=== PATIENT | male | born 1965 | race Caucasian/White ===

== ENCOUNTER 2019-06-27 07:19 | Inpatient (IN) | payer BC, OTHER ==
[~2019-06-27] VITALS: Ht 175.3 cm; Wt 82.6 kg
[2019-06-27] VITALS (7 sets, daily range): BP systolic 112–152; BP diastolic 73–93
[~2019-06-27 07:19] MED LIST: ACET325T9 PO; ATOR10TA60 PO; DICL100G18 TP; HYDR-2761 PO; HYDR12.575 PO; HYDROmorphone 2 MG/ML VIAL IV PRN; IBUP-1007 PO; IV RINGERS,LACTATED 1000ML 1,000 ML IV SCH; LIDOCAINE 1% PF 2 ML VIAL. ID PRN; LISI10TA2 PO; LISI1TAB19 PO; LISI30TA4 PO; MORPHINE SULFATE 2 MG/ML VIAL. IV PRN; NYST60PO TP; OMEG1CAP27 PO; OMEP20CA10 PO; ONDANSETRON PF 4 MG/2 ML VIAL. IV PRN; PROCHLORPERAZINE 10 MG/2 ML VIAL. IV PRN; SENN8.6T67 PO; SILD50TA PO; TRAM50TA PO; ZINC56.7 TP; cefOXitin SODIUM IV Push 2 GM VIAL. IVP PRN; fentaNYL PF VIAL 100 MCG/2 ML VIAL IV PRN
[2019-06-27] MEDS ORDERED: PROPOFOL 20 ML IV ONE (08:38)
[2019-06-27] MEDS ORDERED: LIDOCAINE 2% PF 5 ML VIAL. ONE (08:38)
[2019-06-27] MEDS ORDERED: fentaNYL PF VIAL 100 MCG/2 ML VIAL ONE ×2 (08:38→10:45)
[2019-06-27] MEDS ORDERED: MIDAZOLAM HCL/PF 2 MG/2 ML VIAL. ONE (08:38)
[2019-06-27] MEDS ORDERED: DEXAMETHASONE SOD PHOS 4 MG/ML VIAL ONE (08:38)
[2019-06-27] MEDS ORDERED: ONDANSETRON PF 4 MG/2 ML VIAL. ONE (08:38)
[2019-06-27] MEDS ORDERED: ROCURONIUM 50 MG/5 ML VIAL. ONE (08:38)
--- NOTE | 2019-06-27 08:54 | PDOC ---
SURGICAL PROGRESS NOTE Subjective 53 yo M with hx of cecal perforation. TO OR for ileostomy takedown. Barium enema is wnl R/R/B/A d/w pt and pt's mother. Risks, including, but not limited to: bleeding, infection, damage to surrounding structures, risk of anesthesia, risk of . They appear to understand, their questions are answered and they elect to proceed. Office note H&P reviewed and unchanged. Vital Signs Vital Signs Date Time Temp Pulse Resp B/P (MAP) Pulse Ox O2 Delivery O2 Flow Rate FiO2 06/27/19 08:24 98.4 75 18 158/94 97 Room Air 98.4 CARLOS ENRIQUE BARNARD MD Jun 27, 2019 08:54
[2019-06-27] MEDS ORDERED: cefOXitin SODIUM IV Push 2 GM VIAL. IVP ONE (09:45)
[2019-06-27] MEDS ORDERED: NEOSTIGMINE METHYLSULFATE 5 MG/5 ML SYRINGE. ONE (10:13)
[2019-06-27] MEDS ORDERED: GLYCOPYRROLATE 1 MG/5 ML VIAL. ONE (10:13)
[2019-06-27] MEDS: IV RINGERS,LACTATED 1000ML 1,000 ML IV SCH ×2 (10:26→14:20)
[2019-06-27] MEDS ORDERED: IV NORMAL SALINE 1000ML BAG 1,000 ML IV SCH (10:26)
[2019-06-27] MEDS ORDERED: ONDANSETRON PF 4 MG/2 ML VIAL. IV PRN (10:30)
[2019-06-27] MEDS ORDERED: NALOXONE 0.4 MG/ML VIAL. IV PRN (10:30)
[2019-06-27] MEDS ORDERED: MORPHINE SULFATE 2 MG/ML VIAL. IV PRN (10:30)
[2019-06-27] MEDS ORDERED: 0.9 % SODIUM CHLORIDE 10 ML DISP.SYRIN. IV PRN (10:30)
--- NOTE | 2019-06-27 10:35 | PDOC4 ---
OPERATIVE NOTE Date: Date: Jun 27, 2019 Pre-Op Diagnosis: Perforated cecum Post-Op Diagnosis: same Procedure Performed: Ileostomy takedown Surgeon: Atilio Barnard Anesthesia Type: GETA Blood Loss: 50 Specimans Obtained: none Findings: normal anatomy Complications: none Operative Note: After obtaining informed consent, patient was taken to OR, induced under GETA and prepped in the usual fashion. Ileostomy site was identified. Mucocutaneous junction was divided with cautery. This was taken down to fascia. Fascia cleared off for several centimeters circumferentially. No obvious pathology noted. The previous ileostomy was closed in a transverse fashion using inside layer of 3 0 PDS and outside layer of 3 0 vicryl. Repair appears patent, viable, under no tension and without evidence of leakage. Bowel returned to abdominal cavity. Copious irrigation. Fascia repaired in transverse fashion using 0 looped PDS. Skin and subcutaneous tissue closed loosely in a pursestring fashion using 3 0 vicryl and 4 0 monocryl. Dressing placed. Patient tolerated procedure well and was sent to PACU in stable condition. All counts correct. Wound class is 4, dirty (ileostomy). CARLOS ENRIQUE BARNARD MD Jun 27, 2019 10:35
[2019-06-27] MEDS: HYDROcodone/APAP 5/325MG 1 TAB TABLET PO PRN ×2 (12:52→23:12)
[2019-06-27] MEDS ORDERED: SEVOFLURANE 61 TO 120 MINUTES. IH ONE (13:48)
[2019-06-27] MEDS: NAPROXEN 500 MG TABLET PO PRN ×2 (15:10→21:51)
[2019-06-27] MEDS: ACETAMINOPHEN 325 MG TABLET. PO PRN (15:10)
[2019-06-27] MEDS: DOCUSATE SODIUM 100 MG CAPSULE. PO SCH (21:51)
[2019-06-27] MEDS: ENOXAPARIN 40 MG/0.4 ML SYRINGE. SQ SCH (21:52)
[2019-06-28 03:00] VITALS: BP 131/71
[2019-06-28] MEDS: NAPROXEN 500 MG TABLET PO PRN ×2 (06:10→22:13)
[2019-06-28] MEDS: HYDROcodone/APAP 5/325MG 1 TAB TABLET PO PRN ×2 (06:10→22:13)
[2019-06-28 07:00] VITALS: BP 148/87
[2019-06-28] MEDS: DOCUSATE SODIUM 100 MG CAPSULE. PO SCH ×2 (09:57→22:12)
[2019-06-28 11:00] VITALS: BP 152/91
--- NOTE | 2019-06-28 14:40 | PDOC ---
SURGICAL PROGRESS NOTE Subjective Pt without c/o, freida clears, no n/V passing stools Vital Signs Vital Signs Date Time Temp Pulse Resp B/P (MAP) Pulse Ox O2 Delivery O2 Flow Rate FiO2 06/28/19 11:00 98.4 69 18 152/91 (111) 99 Room Air 98.4 06/27/19 23:00 8.0 I&O Intake and Output 06/28/19 07:00 Intake Total 1800 ml Output Total 250 ml Balance 1550 ml IV Total 1100 ml Other 700 ml Output Urine Total 200 ml Estimated Blood Loss 50 ml # Voids 7 General: Alert, Oriented X3, Cooperative, No acute distress Abdomen: Soft, No tenderness, Other (dressing c/d/i) Problem List s/p ileostomy takedown doing well ADAT plan d/c in AM CARLOS ENRIQUE BARNARD MD Jun 28, 2019 14:40
[2019-06-28 15:00] VITALS: BP 155/88
[2019-06-28 19:00] VITALS: BP 133/67
[2019-06-28] MEDS: ENOXAPARIN 40 MG/0.4 ML SYRINGE. SQ SCH (21:00)
[2019-06-28 23:00] VITALS: BP 146/79
[2019-06-29 03:00] VITALS: BP 136/75
[2019-06-29] MEDS: ACETAMINOPHEN 325 MG TABLET. PO PRN (03:35)
[2019-06-29 07:00] VITALS: BP 143/86
[2019-06-29] MEDS: DOCUSATE SODIUM 100 MG CAPSULE. PO SCH (08:49)
[2019-06-29] MEDS: HYDROcodone/APAP 5/325MG 1 TAB TABLET PO PRN (08:53)
[2019-06-29 11:00] VITALS: BP 145/84
--- NOTE | 2019-06-29 12:25 | PDOC ---
Provider Note Provider Note JOSE E Ding for Dr Lisa pt up and about tolerating diet home today follow up with CHANTE Alcantara MD Jun 29, 2019 12:25
--- NOTE | 2019-07-03 11:32 | PDOC3 ---
Discharge Summary Visit Information Date of Admission: Jun 27, 2019 Date of Discharge: Jun 29, 2019 Admitting Diagnosis: Perforated cecum Final Diagnosis Perforated cecum Brief Hospital Course Allergies Allergies Coded Allergies Type Severity Reaction Last Updated Verified No Known Drug Allergies 06/22/19 No Brief Hospital Course Mr. Guevara is a 53 old male who underwent ileostomy takedown. Postoperatively tolerating diet, bowel function slowly returned, and ready for discharge home Discharge Information Condition at Discharge: Stable Follow Up: Weeks (2) Disposition/Orders: D/C to Home Scheduled Atorvastatin Calcium (Atorvastatin Calcium) 10 Mg Tablet, 10 MG PO HS for cholesterol, #30 Ref 0 (Reported) Entered as Reported by: SAMANTHA FISHMAN on 04/07/191038 Last Taken: Unknown Dose on 06/26/19 Last Action: Reviewed on 06/27/19822 by MEY QUESADA Hydrochlorothiazide (Hydrochlorothiazide Capsule ) 12.5 Mg Capsule, 12.5 MG PO DAILY for DIURETIC, Ref 0 (Reported) Entered as Reported by: FANNY SHARMA on 06/22/191310 Last Taken: Unknown Dose on 06/26/19 Last Action: Reviewed on 06/27/19822 by MEY QUESADA Lisinopril (Lisinopril) 30 Mg Tablet, 1 TAB PO DAILY for HTN, #30 Ref 5 (Reported) Entered as Reported by: FANNY SHARMA on 06/22/191310 Last Taken: Unknown Dose on 06/26/19 Last Action: Reviewed on 06/27/19822 by MEY QUESADA Omeprazole (Omeprazole) 20 Mg Capsule.dr, 1 CAP PO DAILY for stomach acid, #30 Ref 5 (Reported) Entered as Reported by: SAMANTHA FISHMAN on 04/07/191038 Last Taken: Unknown Dose on 06/26/19 Last Action: Reviewed on 06/27/19822 by MEY QUESADA Scheduled PRN Acetaminophen (Tylenol) 325 Mg Tablet, 2 TAB PO PRN Q12HRS PRN for PAIN, #30 (Reported) Entered as Reported by: SAMANTHA FISHMAN on 04/07/191038 Last Taken: Unknown Dose on 06/27/19 0500 Last Action: Reviewed on 06/27/19822 by MEY QUESADA Hydrocodone Bit/Acetaminophen (Hydrocodone-Apap 5-325 ) 1 Tab Tablet, 1 TAB PO PRN Q12HRS PRN for PAIN, #30 Ref 0 Prescribed by: FERMIN FINE on 05/04/19 1003 Last Taken: Unknown Dose on 06/27/19499 Last Action: Reviewed on 06/27/19822 by MEY QUESADA Tramadol Hcl (Tramadol Hcl) 50 Mg Tablet, 50 MG PO PRN Q4-6HRS PRN for PAIN, Ref 0 (Reported) Entered as Reported by: SAMANTHA FISHMAN on 04/07/19 1039 Last Taken: Unknown Dose on 06/27/19499 Last Action: Reviewed on 06/27/19822 by GIL GARCIA APRN Jul 03, 2019 11:32
== END 2019-06-29 14:28 | disposition home or self-care (01) | DRG 331 ==
LOC: OPSVCIP 07:19 → 4 NORTH 11:48
PROVIDERS: ADMIT Surgery; ATTEND Surgery
PROC: 0DQB0ZZ Repair Ileum, Open Approach (ICD-10-PCS; principal; 2019-06-27 09:00)
DX: Z43.2 Encounter for attention to ileostomy (principal); I10 Essential (primary) hypertension; Z80.1 Family history of malignant neoplasm of trachea, bronchus and lung; Z80.8 Family history of malignant neoplasm of other organs or systems; Z82.49 Family history of ischemic heart disease and other diseases of the circulatory system
CPT/HCPCS: A7015; C1769; J0694; J1100; J1650; J2001; J2250; J2405; J2704; J2710; J3010; J3490; J7030; J7120; A4461; G0378